=== PATIENT | male | born 1970 | race African-American/Black ===

== ENCOUNTER 2017-10-27 11:56 | Day surgery (SDC) | payer OTHER ==
--- NOTE | 2017-10-27 15:17 | Anesthesia Day of Surgery ---
Anesthesia Day of Surgery - Day of Surgery Patient Examined: Yes Patient H&P Reviewed: Yes Patient is NPO: Yes
--- NOTE | 2017-10-27 15:18 | Anesthesia Consultation ---
Anesthesia Consult and Med Hx Date of service: 10/27/17 - Airway Anesthetic Teeth Evaluation: Poor ROM Head & Neck: Adequate Mental/Hyoid Distance: Adequate Mallampati Class: Class III Intubation Access Assessment: Possibly Difficult - Pulmonary Exam CTA: Yes - Cardiac Exam Cardiac Exam: RRR - Pre-Operative Health Status ASA Pre-Surgery Classification: ASA3 Proposed Anesthetic Plan: IV Sedation
[2017-10-27] MEDS ORDERED: NACL 0.9% 1000 ML 1,000 ML IV SCH (16:00)
[2017-10-27] MEDS ORDERED: XYLOCAINE MPF 2% ONE (19:00)
[2017-10-27] MEDS ORDERED: DIPRIVAN 10 MG/ML IV ONE ×2 (19:15→19:16)
[2017-10-27] MEDS ORDERED: INFANTS' GAS RELIEF PO ONE (19:26)
[2017-10-27] MEDS ORDERED: WATER FOR IRRIG STERILE ONE (19:26)
--- NOTE | 2017-10-27 19:36 | Operative Report ---
Operative Report Operative Report: Date of procedure: 10/27/2017 Procedure: Colonoscopy. Attending physician: Christopher Dyer MD Commercial Portfolio Manager: Christopher Dyer MD Indication: Patient is a 47-year-old male who presents for screening colonoscopy. He has had blood in stool and abdominal pain. A colonoscopy service to evaluate patient for colorectal cancer screening. Consent: Informed consent was obtained after advising the patient and family regarding nature of this procedure, its indications, potential benefits as well as possible complications including but not limited to bleeding perforation and adverse reaction to medication, infection as well as other cardiopulmonary complications. An informed written and verbal consent was then obtained after due opportunity was provided for questions and answers. Monitoring: Patient was monitored continuously with pulse oximetry and electrocardiographic recordings as well as blood pressure recordings. Vital signs remained stable throughout this procedure with no untoward events. Preoperative assessment: Patient was assessed immediately prior to this procedure for capacity to tolerate monitored anesthesia care and moderate sedation as well as general anesthesia. Patient's ASA classification is 2, Mallampati class is 2, Hyomental distance is 3. Instrument: [employer] video colonoscope Medications: Propofol given intravenously in divided doses. For details please refer to anesthesia records. Description of procedure: Patient was placed in the left lateral decubitus position after achieving sedation, a digital rectal examination was performed following which the colonoscope was introduced into the anal verge and advanced to the cecum which was identified by the cecal valve, the appendiceal orifice, as well as by the cecal strap and direct transillumination. The colonoscope was subsequently withdrawn with careful inspection of all mucosal surfaces. Patient tolerated this procedure well and was subsequently taken to the recovery room. The following findings were noted. Findings: There were scattered diverticula in the sigmoid colon, descending colon, ascending colon and cecum. Patient had thick liquid stool seen in various sections of the colon. There were no mucosal lesions otherwise. On the retroflex view at the anal verge, patient had prominent internal hemorrhoids. Impression: Diverticulosis. Retained stool Internal hemorrhoids. Plan: High-fiber diet. Repeat colonoscopy in 10 years. Patient will likely benefit from hemorrhoidal band ligation in the future if his internal hemorrhoids become symptomatic.
--- NOTE | 2017-10-27 19:37 | Discharge Summary ---
Short Stay Discharge Plan Activity: advance as tolerated Weight Bearing Status: Weight Bear as Tolerated Diet: regular Follow up with: PRIMARY CARE, [Primary Care Provider] - 7 Days
[2017-10-27 21:49] VITALS: BP 109/48
== END 2017-10-27 11:57 | disposition home or self-care (01) ==
LOC: GIO 11:56 → EDBD 11:56 → GIO 11:57
PROVIDERS: ATTEND Internal Medicine Gastroenterology
DX: K92.1 Melena (principal); K64.8 Other hemorrhoids; K21.9 Gastro-esophageal reflux disease without esophagitis; K52.9 Noninfective gastroenteritis and colitis, unspecified; K57.30 Diverticulosis of large intestine without perforation or abscess without bleeding; E11.9 Type 2 diabetes mellitus without complications; Z88.6 Allergy status to analgesic agent; Z91.011 Allergy to milk products; Z80.0 Family history of malignant neoplasm of digestive organs
CPT/HCPCS: 45378; J2704; J7030